=== PATIENT | male | born 1950 | race Caucasian/White ===

== ENCOUNTER → 2017-11-20 | Outpatient (CLI) | payer BC ==
--- NOTE | 2017-11-20 10:27 | Diagnostic Imaging Report ---
INDICATION: Pain in the right ribs. Time of exam: 10:27 AM 3 views of the right sided ribs were obtained. No displaced rib fracture is identified. No parenchymal contusion is identified. No effusion or pneumothorax is seen. IMPRESSION: No acute feature is identified. Dictated by: Dictated on workstation # [id number]
== END ==
LOC: RAD 09:56
PROVIDERS: ATTEND Nurse Practitioner Family
DX: R07.81 Pleurodynia (principal)
CPT/HCPCS: 71100

== ENCOUNTER 2018-01-19 08:01 | Day surgery (SDC) | payer BC ==
[~2018-01-19] VITALS: Ht 177.8 cm; Wt 115.7 kg
[~2018-01-19 08:01] MED LIST: ENAL20TA PO; LEVO150T6 PO; MULT-35 PO
--- OUTSIDE RECORDS SUMMARY | 2018-01-19 08:03 | XMS REPORT | Continuity of Care Document ---
Author Author [employer] Organization [facility] Address Unknown Phone Unavailable Care Team Providers Care Senior Benefits Analyst Name Role Phone [employer] Unavailable Unavailable Problems Medications Allergies, Adverse Reactions, Alerts Immunizations Results Vital Signs Encounters Location Location Details Encounter Type Encounter Number Reason For Visit Attending Provider ADM Date DC Date Status Source OUTPATIENT [id number] VISHAL GOLDEN 08/26/2016 08/26/2016 Active [facility] OUTPATIENT [id number] BRENDA COSTELLO 12/03/20172017 Active [facility] OUTPATIENT [id number] BRENDA COSTELLO 12/03/2017 Active [facility] O BRENDA COSTELLO Active [facility] Procedures Plan of Care Social History Assessment and Plan Family History Advance Directives Functional Status
--- OUTSIDE RECORDS SUMMARY | 2018-01-19 08:04 | XMS REPORT | Encounter Summary ---
Author Author [facility] Organization [facility] Address Unknown Phone Unavailable Care Team Providers Care Bioinformatics Technician Name Role Phone Brice Berry MD Unavailable Josh Ledesma MD Unavailable Iris Fisher RN Unavailable Unavailable Easton Martinez MD Unavailable Wiley Vargas MD PCP Maria Elena Haji Unavailable Unavailable Anita Rdz APRN Unavailable Candi Rosales PHARMD Unavailable Unavailable Isha Chahal Unavailable Unavailable Elyssa Brower Unavailable Unavailable Francisca Hu Unavailable Unavailable Reason for Visit * Reason Comments Results Encounter Details Date Type Department Care Team Description 12/07/2017 Telephone Center Shawn Arthur, Results Transplantation-Hepatolog CURTAIN STITCHER-CYTOTECHNOLOGIST/HISTOTECHNOLOGIST y Clinic [address] [facility] [address] [place] [address] [facility] [phone] [place] [address] Social History Tobacco Use Types Packs/Day Years Used Date Never Smoker Smokeless Tobacco: Never Used Alcohol Use Drinks/Week oz/Week Comments Yes 0 Standard 0.0 1 drink per week drinks or equivalent Sex Assigned at Date Recorded Not on file as of this encounter Functional Status Functional Status Response Date of Assessment Does the patient have a hearing impairment: No 12/03/2017 Does the patient have a visual impairment: No 12/03/2017 Does the patient have impaired ambulation: No 12/03/2017 Does the patient have an activity of daily living No 12/03/2017 (ADL) impairment: Does the patient have an instrumental activity of No 12/03/2017 daily living (IADL) impairment: Cognitive Status Response Date of Assessment Does the patient have a cognitive impairment: No 12/03/2017 as of this encounter Miscellaneous Notes * Telephone Encounter - Chantal Garza RN - 12/07/2017 1:09 PM CDT Patient notified that lab results are stable at this time. * Telephone Encounter - Chantal Garza RN - 12/07/2017 1:09 PM CDT ----- Message from CLARIBEL Mendez sent at 12/05/2017 8:09 AM CDT -- --- No evidence of iron overload Liver enzymes are stable in this encounter Plan of Treatment Not on fileas of this encounter Visit Diagnoses Not on filein this encounter
--- OUTSIDE RECORDS SUMMARY | 2018-01-19 08:04 | XMS REPORT | Clinical Summary ---
Author Author [facility] Organization [facility] Address Unknown Phone Unavailable Care Team Providers Care Barrel Drum Cutter Name Role Phone Brice Berry MD Unavailable Josh Ledesma MD Unavailable Iris Fisher RN Unavailable Unavailable Easton Martinez MD Unavailable Wiley Vargas MD PCP Maria Elena Haji Unavailable Unavailable Anita Rdz APRN Unavailable Candi Rosales PHARMD Unavailable Unavailable Isha Chahal Unavailable Unavailable Elyssa Brower Unavailable Unavailable Francisca Hu Unavailable Unavailable Source Comments Some departments are not documenting in the electronic medical record. If you do not see the information that you expected, contact Release of Information in the Health Information Management department at [phone] for further assistance in locating additional records.[facility] Allergies No Known Allergies Current Medications Prescription Sig. Disp. Refills Start End Date Status Date enalapril (VASOTEC) 20 mg Take 20 mg by mouth Active tablet daily. levothyroxine (SYNTHROID) Take 150 mcg by mouth Active 150 mcg tablet daily. ibuprofen (ADVIL) 200 mg Take 200 mg by mouth Active tablet every 6 hours as needed for Pain. Take with food. Active Problems Problem Noted Date Essential hypertension 11/03/2015 Hepatitis C 11/03/2015 Hypothyroidism 11/03/2015 Encounters Date Type Specialty Care Team Description 12/14/2017 Documentation Hepatology Shawn Mcdaniels, CYBER INSTRUCTOR-FLAG MAKER 12/07/2017 Telephone Hepatology Shawn Mcdaniels, Results CYBER INSTRUCTOR-FLAG MAKER 12/03/2017 Hospital Lab Shawn Mcdaniels, Chronic viral hepatitis C Encounter CYBER INSTRUCTOR-FLAG MAKER (HCC) 12/03/2017 Office Visit Hepatology Shawn Mcdaniels, Chronic hepatitis C CYBER INSTRUCTOR-FLAG MAKER without hepatic coma (HCC) (Primary Dx); Essential hypertension; Other specified hypothyroidism from Last 3 Months Family History Medical History Relation Name Comments Basal Cell Carcinoma Father Relation Name Status Comments Father Social History Tobacco Use Types Packs/Day Years Used Date Never Smoker Smokeless Tobacco: Never Used Alcohol Use Drinks/Week oz/Week Comments Yes 0 Standard 0.0 1 drink per week drinks or equivalent Sex Assigned at Date Recorded Not on file Last Filed Vital Signs Vital Sign Reading Time Taken Blood Pressure 138/76 12/03/2017 10:56 AM CDT Pulse 58 12/03/2017 10:56 AM CDT Temperature 37 C (98.6 F) 12/03/2017 10:56 AM CDT Respiratory Rate 16 12/03/2017 10:56 AM CDT Oxygen Saturation 98% 12/03/2017 10:56 AM CDT Inhaled Oxygen - - Concentration Weight 117.6 kg (259 lb 3.2 oz) 12/03/2017 10:56 AM CDT Height 177.8 cm (5' 10") 12/03/2017 10:56 AM CDT Body Mass Index 37.19 12/03/2017 10:56 AM CDT Plan of Treatment Health Maintenance Due Date Last Done Comments PHYSICAL (COMPREHENSIVE) 1959 EXAM PERTUSSIS VACCINE 1963 TETANUS VACCINE 1969 COLORECTAL CANCER 2002 SCREENING SHINGLES VACCINE 2012 PREVNAR/PNEUMOVAX (#1) 2017 INFLUENZA VACCINE 06/21/2018 HIV SCREENING Completed 11/01/2015 Procedures Procedure Name Priority Date/Time Associated Diagnosis Comments ND LIVER ELASTOGRAPHY W/O Routine 12/03/2017 Chronic hepatitis C Results for this IMAG W/I&R 10:40 AM CDT without hepatic coma procedure are in the (HCC) results section. Essential hypertension Other specified hypothyroidism from Last 3 Months Results * IRON + BINDING CAPACITY + %SAT+ FERRITIN (12/03/2017 11:50 AM) Component Value Ref Range Iron 85 50 - 185 MCG/DL Iron Binding-TIBC 352 270 - 380 MCG/DL % Saturation 24 (L) 28 - 42 % Ferritin 160 30 - 300 NG/ML Specimen Performing Laboratory [facility] [address] [place] [address] * PROTIME INR (PT) (12/03/2017 11:50 AM) Component Value Ref Range INR 1.0 0.8 - 1.2 Specimen Performing Laboratory [facility] [address] [place] [address] * CBC AND DIFF (12/03/2017 11:50 AM) Component Value Ref Range White Blood Cells 8.7 4.5 - 11.0 K/UL RBC 4.75 4.4 - 5.5 M/UL Hemoglobin 14.6 13.5 - 16.5 GM/DL Hematocrit 43.5 40 - 50 % MCV 91.5 80 - 100 FL MCH 30.7 26 - 34 PG MCHC 33.6 32.0 - 36.0 G/DL RDW 13.3 11 - 15 % Platelet Count 254 150 - 400 K/UL MPV 8.9 7 - 11 FL Neutrophils 61 41 - 77 % Lymphocytes 27 24 - 44 % Monocytes 7 4 - 12 % Eosinophils 4 0 - 5 % Basophils 1 0 - 2 % Absolute Neutrophil Count 5.30 1.8 - 7.0 K/UL Absolute Lymph Count 2.30 1.0 - 4.8 K/UL Absolute Monocyte Count 0.60 0 - 0.80 K/UL Absolute Eosinophil Count 0.40 0 - 0.45 K/UL Absolute Basophil Count 0.10 0 - 0.20 K/UL Specimen Performing Laboratory [facility] [address] [place] [address] * COMPREHENSIVE METABOLIC PANEL (12/03/2017 11:50 AM) Component Value Ref Range Sodium 137 137 - 147 MMOL/L Potassium 4.0 3.5 - 5.1 MMOL/L Chloride 105 98 - 110 MMOL/L Glucose 124 (H) 70 - 100 MG/DL Blood Urea Nitrogen 16 7 - 25 MG/DL Creatinine 0.85 0.4 - 1.24 MG/DL Calcium 9.1 8.5 - 10.6 MG/DL Total Protein 6.9 6.0 - 8.0 G/DL Total Bilirubin 0.4 0.3 - 1.2 MG/DL Albumin 4.6 3.5 - 5.0 G/DL Alk Phosphatase 50 25 - 110 U/L AST (SGOT) 17 7 - 40 U/L CO2 25 21 - 30 MMOL/L ALT (SGPT) 19 7 - 56 U/L Anion Gap 7 3 - 12 eGFR Non >60 >60 mL/min Comment: The eGFR is not validated for use in drug dosing adjustments.Continue to use estimated creatinine clearance per dosing reference text.Please contact the Clinical Pharmacist for questions. eGFR >60 >60 mL/min Comment: The eGFR is not validated for use in drug dosing adjustments.Continue to use estimated creatinine clearance per dosing reference text.Please contact the Clinical Pharmacist for questions. Specimen Performing Laboratory [facility] [address] [place] [address] * FIBROSCAN (12/03/2017 10:40 AM) Specimen Performing Laboratory IN CLINIC Shawn Patel APRN-YANI 12/03/20172:37 PM Fibroscan Procedure Note Date:12/03/2017 Burner Technician:Matty Mcdaniels APRN Attending:Easton Martinez MD Observations E (Elastacity) Median:6.6kPa IQR / med.:12% CAP Median:400 dB/m Interpretation Disease:HCV Fibrosis score correlation/Estimation: HCV <7.0 F0-F1:No to Minimal Fibrosis Steatosis score correlation/estimation: >290S3: >67% Steatosis Recommendations -Follow-up in clinic with liver provider -Lifestyle modification with exercise, diet, glycemic control are the cornerstones of fatty liver treatment. Fibroscan evaluations are estimates only and due to measurement variability/characteristics of elastography results should be interpreted with caution and clinical correlation is required. I certify that I performed the interpretation of this study, including review of measurements and supervisor vendor quality measures. Matty Mcdaniels APRN from Last 3 Months
--- OUTSIDE RECORDS SUMMARY | 2018-01-19 08:04 | XMS REPORT | Encounter Summary ---
Author Author [facility] Organization [facility] Address Unknown Phone Unavailable Care Team Providers Care Radiotelephone Technical Operator Name Role Phone Brice Berry MD Unavailable Josh Ledesma MD Unavailable Iris Fisher RN Unavailable Unavailable Easton Martinez MD Unavailable Wiley Vargas MD PCP Maria Elena Haji Unavailable Unavailable Anita Rdz APRN Unavailable Candi Rosales PHARMD Unavailable Unavailable Isha Chahal Unavailable Unavailable Elyssa Brower Unavailable Unavailable Francisca Hu Unavailable Unavailable Encounter Details Date Type Department Care Team Description 12/03/2017 [facility] Shawn Mcdaniels, Chronic viral hepatitis C Encounter [address] [facility]. FURNITURE DUSTER-TEAM PHYSICIAN (HCC) [place] [address] [address] [place] [address] [phone] Social History Tobacco Use Types Packs/Day Years [...] impairment: No 12/03/2017 as of this encounter Medications at Time of Discharge Medication Sig. Disp. Refills Start Date End Date enalapril (VASOTEC) 20 mg Take 20 mg by mouth tablet daily. ibuprofen (ADVIL) 200 mg Take 200 mg by mouth tablet every 6 hours as needed for Pain. Take with food. levothyroxine (SYNTHROID) Take 150 mcg by mouth 150 mcg tablet daily. as of this encounter Plan of Treatment Not on fileas of this encounter Results * IRON + BINDING CAPACITY + %SAT+ FERRITIN (12/03/2017 11:50 AM) Component Value Ref Range Iron 85 50 - 185 MCG/DL Iron Binding-TIBC 352 270 - 380 MCG/DL % Saturation 24 (L) 28 - 42 % Ferritin 160 30 - 300 NG/ML Specimen Performing Laboratory [facility] [address] [place] [address] * PROTIME INR (PT) (12/03/2017 11:50 AM) Component Value Ref Range INR 1.0 0.8 - 1.2 Specimen Performing Laboratory [facility] [address] [place] [address] * COMPREHENSIVE METABOLIC PANEL (12/03/2017 11:50 AM) [...] Pharmacist for questions. Specimen Performing Laboratory [facility] [address] [place] [address] * CBC AND DIFF (12/03/2017 11:50 AM) [...] Specimen Performing Laboratory [facility] [address] [place] [address] in this encounter Visit Diagnoses Diagnosis Chronic hepatitis C without hepatic coma (HCC) Chronic hepatitis C without mention of hepatic coma Essential hypertension Unspecified essential hypertension Other specified hypothyroidism Admitting Diagnoses Diagnosis Chronic viral hepatitis C (HCC) Chronic viral hepatitis C Essential (primary) hypertension Other specified hypothyroidism
--- OUTSIDE RECORDS SUMMARY | 2018-01-19 08:04 | XMS REPORT | Encounter Summary ---
Author Author [facility] Organization [facility] Address Unknown Phone Unavailable Care Team Providers Care Dialysis Social Worker Name Role Phone Brice Berry MD Unavailable Josh Ledesma MD Unavailable Iris Fisher RN Unavailable Unavailable Easton Martinez MD Unavailable Wiley Vargas MD PCP Maria Elena Haji Unavailable Unavailable Anita Rdz APRN Unavailable Candi Rosales PHARMD Unavailable Unavailable Isha Chahal Unavailable Unavailable Elyssa Brower Unavailable Unavailable Francisca Hu Unavailable Unavailable Encounter Details Date Type Department Care Team Description 12/14/2017 Documentation Center Shawn Arthur, Transplantation-Hepatolog MACHINE FANCY STITCHER-RN FORENSIC y Clinic [address] [facility] [address] [place] [address] [facility] [phone] [place] [address] Social History Tobacco Use Types [...] impairment: No 12/03/2017 as of this encounter Progress Notes * Sudha Rothman MA - 12/14/2017 10:59 AM CDT Fax Colonoscopy orders to Dr. Vargas office, to be scheduled locally. in this encounter Plan of Treatment Not on fileas of this encounter Visit Diagnoses Not on filein this encounter
--- OUTSIDE RECORDS SUMMARY | 2018-01-19 08:04 | XMS REPORT | Encounter Summary ---
Author Author [facility] Address Unknown Phone Unavailable Care Team Providers Care Business Trainer Name Role Phone Brice Berry MD Unavailable Josh Ledesma MD Unavailable Iris Fisher RN Unavailable Unavailable Vishal Golden MD Unavailable Wiley Vargas MD PCP Maria Elena Haji Unavailable Unavailable Anita Rdz PLANT TECHNICIAN Unavailable Candi Rosales PHARMD Unavailable Unavailable Isha Chahal Unavailable Unavailable Elyssa Brower Unavailable Unavailable Francisca Hu Unavailable Unavailable Reason for Referral * Consult, Test & Treat (Routine) Status Reason Specialty Diagnoses / Referred By Referred To Procedures Contact Contact New Request Specialty Diagnoses Paula Mcdaniels [facility] Chronic Shawn D, [address] Required hepatitis C PLANT TECHNICIAN-PHARMACY TECHNICIAN [place], [place] without hepatic [address] [address] coma (HCC) [address] Phone: Essential [place], [place] [phone] hypertension [phone] Other specified Phone: hypothyroidism [phone] Reason for Visit * Reason Comments Elevated Liver Enzymes Encounter Details Date Type Department Care Team Description 12/03/2017 Office Visit Center for Shawn Mcdaniels, Chronic hepatitis C Transplantation-Hepatolog PLANT TECHNICIAN-PHARMACY TECHNICIAN without hepatic coma [facility] [address] (HCC) (Primary Dx); [address] [place] [address] Essential hypertension; CENTER FOR [phone] Other [place] [address] Social History Tobacco Use Types Packs/Day Years Used Date Never Smoker Smokeless Tobacco: Never Used Alcohol Use Drinks/Week oz/Week Comments Yes 0 Standard 0.0 1 drink per week drinks or equivalent Sex Assigned at Date Recorded Not on file as of this encounter Last Filed Vital Signs Vital Sign Reading [...] Mass Index 37.19 12/03/2017 10:56 AM CDT in this encounter Functional Status Functional Status Response [...] impairment: No 12/03/2017 as of this encounter Instructions * Patient Instructions - Mary Peterson LPN - 12/03/2017 10:40 AM CDT 12/03/2017 11:07 AM Towel Sorter Please Schedule follow up with Dr. Golden in 1 year Please print order for colonoscopy to be done closer to home in [facility]. Labs today Fibroscan today Today you were seen in clinic by Matty Mcdaniels APRN. Your nurse was Mary. Your Clinical Coordinator is Low. You will also be followed by Dr. Vishal Golden MD. Things discussed at today's visit: We will check your labs today to determine your liver function status. You are due for a colonoscopy this year. You can schedule this closer to home. Your fibroscan today indicates some fat in your liver. We recommend that you work on diet and exercise in order to lose approximately 15 lbs. Please call the office at [phone] if you have any questions or concerns. Back Office Tasks: in this encounter Progress Notes * Shawn Mcdaniels APRN-PHARMACY TECHNICIAN - 12/03/2017 10:40 AM CDT Formatting of this note may be different from the original. Date of Service: 12/03/2017 Nuria Griggs is a 67 y.o. male Subjective: History of Present Illness Mr. Nuria Griggs is a very pleasant 67-year-old gentleman with a prior history of chronic hepatitis C genotype 1A with previous liver biopsy showing stage 3/6 fibrosis with previous FibroSure testing showing F1 and F2 fibrosis. He presents today in followup. He has subsequently completed eight weeks of Harvoni therapy and now has evidence of sustained virological response with a negative HCV RNA level from August 11, 2016. His last HCV PCR showed an undetectable viral load in January of 2017. The patient denies any history of decompensated liver disease symptoms. His liver enzymes have been unremarkable for several months. He reports he has done relatively well since he was last seen in clinic in August of 2016. He did have a fall with fracture of his right humerus. He reports he has recovered well and completed PT. He did have stainable iron on his last liver biopsy and a follow up ferritin level in August of 2016 was 177. He denies any right upper quadrant pain, nausea, hematemesis, melena, hematochezia, fatigue, fevers, jaundice, pruritis, chest pain, shortness of breath, or confusion. Review of Systems Review of systems as above and per History of Present Illness; otherwise negative for 10 of 14 systems reviewed. Objective: enalapril (VASOTEC) 20 mg tablet Take 20 mg by mouth daily. ibuprofen (ADVIL) 200 mg tablet Take 200 mg by mouth every 6 hours as needed for Pain. Take with food. levothyroxine (SYNTHROID) 150 mcg tablet Take 150 mcg by mouth daily. Vitals: 12/03/17 1056 BP: 138/76 Pulse: 58 Resp: 16 Temp: 37 C (98.6 F) TempSrc: Oral SpO2: 98% Weight: 117.6 kg (259 lb 3.2 oz) Height: 177.8 cm (70") Body mass index is 37.19 kg/m. Physical Exam Constitutional: Non-distressed. Well nourished appearing. Good hygiene. ENT: Oropharynx nl. Sclera white. Conjunctiva pink. Neck: Symmetric. Trachea midline. No masses. No JVD Chest: Expands fully and symmetrically with deep inspiration. No intercostal retractions or use of accessory muscles. Auscultation clear, without rales, rhonchi, or wheezes. Cardiac: RRR. No rubs or gallop. No murmurs Peripheral vascular: No peripheral edema. No varicosities. Extremities: Digits/nails without clubbing, cyanosis, inflammation, or infection. Negative for palmar erythema. Abdomen: No hepatomegaly. No splenomegaly. No masses or tenderness. Bowel sounds positive. Negative for scarring. Negative for medusa caput. Negative for ascites. Negative for herniation. Lymphatic: No cervical lymphadenopathy. Musculoskeletal: Muscle strength/tone nl. No atrophy or abnormal movements Skin: No rashes, lesions or ulcers. Negative for jaundice. Negative for cutaneous spiders. Psychiatric:Mood and affect are normal Neuro: Oriented X 3. Negative for asterixis. Negative for tremor. Results for NURIA GRIGGS ( ) as of 12/03/2017 13:19 Ref. Range 12/03/2017 11:50 Hemoglobin Latest Ref Range: 13.5 - 16.5 GM/DL 14.6 Hematocrit Latest Ref Range: 40 - 50 % 43.5 Platelet Count Latest Ref Range: 150 - 400 K/UL 254 White Blood Cells Latest Ref Range: 4.5 - 11.0 K/UL 8.7 Neutrophils Latest Ref Range: 41 - 77 % 61 Absolute Neutrophil Count Latest Ref Range: 1.8 - 7.0 K/UL 5.30 Lymphocytes Latest Ref Range: 24 - 44 % 27 Absolute Lymph Count Latest Ref Range: 1.0 - 4.8 K/UL 2.30 Monocytes Latest Ref Range: 4 - 12 % 7 Absolute Monocyte Count Latest Ref Range: 0 - 0.80 K/UL 0.60 Eosinophils Latest Ref Range: 0 - 5 % 4 Absolute Eosinophil Count Latest Ref Range: 0 - 0.45 K/UL 0.40 Absolute Basophil Count Latest Ref Range: 0 - 0.20 K/UL 0.10 Basophils Latest Ref Range: 0 - 2 % 1 RBC Latest Ref Range: 4.4 - 5.5 M/UL 4.75 MCV Latest Ref Range: 80 - 100 FL 91.5 MCH Latest Ref Range: 26 - 34 PG 30.7 MCHC Latest Ref Range: 32.0 - 36.0 G/DL 33.6 MPV Latest Ref Range: 7 - 11 FL 8.9 RDW Latest Ref Range: 11 - 15 % 13.3 INR Latest Ref Range: 0.8 - 1.2 1.0 Iron Latest Ref Range: 50 - 185 MCG/DL 85 % Saturation Latest Ref Range: 28 - 42 % 24 (L) Iron Binding-TIBC Latest Ref Range: 270 - 380 MCG/DL 352 Ferritin Latest Ref Range: 30 - 300 NG/ML 160 Sodium Latest Ref Range: 137 - 147 MMOL/L 137 Potassium Latest Ref Range: 3.5 - 5.1 MMOL/L 4.0 Chloride Latest Ref Range: 98 - 110 MMOL/L 105 CO2 Latest Ref Range: 21 - 30 MMOL/L 25 Anion Gap Latest Ref Range: 3 - 12 7 Blood Urea Nitrogen Latest Ref Range: 7 - 25 MG/DL 16 Creatinine Latest Ref Range: 0.4 - 1.24 MG/DL 0.85 eGFR Non Latest Ref Range: >60 mL/min >60 eGFR Latest Ref Range: >60 mL/min >60 Glucose Latest Ref Range: 70 - 100 MG/DL 124 (H) Albumin Latest Ref Range: 3.5 - 5.0 G/DL 4.6 Calcium Latest Ref Range: 8.5 - 10.6 MG/DL 9.1 Total Bilirubin Latest Ref Range: 0.3 - 1.2 MG/DL 0.4 Total Protein Latest Ref Range: 6.0 - 8.0 G/DL 6.9 AST (SGOT) Latest Ref Range: 7 - 40 U/L 17 ALT (SGPT) Latest Ref Range: 7 - 56 U/L 19 Alk Phosphatase Latest Ref Range: 25 - 110 U/L 50 PATHOLOGY REPORT [facility] [email or web address] Barbara Chavez MD, PhD, Director Anatomic Pathology Department of Pathology and Laboratory Medicine [address] [place] [id number] Surgical Pathology Office: [phone] SURGICAL PATHOLOGY REPORT NAME: NURIA GRIGGS SURG PATH #: [id number] MR #: [id number] SPECIMEN CLASS: SR BILLING #: [id number] ALT ID #: [facility] DATE OF PROCEDURE: 12/31/2015 AGE: 65 SEX: M DATE RECEIVED: 12/31/2015 : 1950 TIME RECEIVED: 14:17 PHYSICIAN: VISHAL GOLDEN DATE OF REPORT: 01/01/2016 COPY TO: DATE OF PRINTIN01/01/2016 ######################################################################## Final Diagnosis: A. Liver, "liver biopsy", biopsy: Chronic hepatitis, clinically hepatitis C, with mild activity (mHAI grade 3/18). Fibrous expansion of most portal areas with occasional bridging (mHAI stage 3/6). Increased hepatocellular iron (3/4). Comment: Check list for liver biopsy with Hepatitis C. Modified ZAID grading Score Interface hepatitis (piecemeal necrosis) 0/4 Confluent necrosis 0/6 Spotty necrosis 1/4 Portal inflammation 2/4 Total score 3/18 Modified ZAID staging 3/6 Percent Steatosis: <5 % COMMENT: Special stains (trichrome, PAS with and without diastase, Yudith's iron stain) support the above diagnosis. Attestation: By this signature, I attest that I have personally formulated the final interpretation expressed in this report and that the above diagnosis is based upon my examination of the slides and/or other material indicated in this report. +++Electronically Signed Out By+++ soo/12/31/2015 Interpreted by: Theodore Austin M.D. Surgical Pathology Fellow 01/01/2016 ######################################################################## Material Received: A: Liver biopsy History: 65-year-old male with a clinical history of hepatitis C. Gross Description: A. Received in formalin labeled "liver biopsy" is a 1.8 x 0.2 x 0.1 cm aggregate of cylindrical, pale bean, soft tissue fragments. The specimen is entirely submitted in cassette A1. (arl) arl/12/31/2015 Fibroscan Procedure Note Date: 12/03/2017 Payroll Manager: Matty Mcdaniels APRN Attending: Vishal Golden MD Observations E (Elastacity) Median: 6.6 kPa IQR / med.: 12% CAP Median: 400 dB/m Interpretation Disease: HCV Fibrosis score correlation/Estimation: HCV <7.0 F0-F1: No to Minimal Fibrosis Steatosis score correlation/estimation: >290 S3: >67% Steatosis Recommendations -Follow-up in clinic with liver provider -Lifestyle modification with exercise, diet, glycemic control are the cornerstones of fatty liver treatment. Fibroscan evaluations are estimates only and due to measurement variability/ characteristics of elastography results should be interpreted with caution and clinical correlation is required. I certify that I performed the interpretation of this study, including review of measurements and senior software quality engineer measures. Matty Mcdaniels APRN Assessment and Plan: Impression: Mr. Griggs is a pleasant 66-year-old gentleman with a history of prior hepatitis C, genotype 1A, now completed eight weeks of Harvoni with evidence of sustained virological response, now presenting in followup. Assessment and plan: 1. History of hepatitis C We had a detailed discussion and review with the patient. He has a history of prior hepatitis C genotype 1A. He had stage 3/6 fibrosis as noted below. He has completed eight weeks of Harvoni. He now has evidence of sustained virologic response with his last HCV RNA level negative on August 11, 2016. His ALT had been mildly elevated up to 50 in the past but have now stabalized. We have discussed the concept of eradication of hepatitis C. We discussed the durability of SVR based on current data. We did discuss repeating an HCV RNA level within the next year to ensure persistent viral negativity, although again extremely low risk of relapse at this point. If his HCV RNA level remains negative, no further need for ongoing hepatitis C monitoring at this point. 2. Fibrosis staging The patient had initial Fibrotest showing F1-F2 fibrosis and then had a liver biopsy showing stage 3/6 fibrosis. His fibro scan today did not showed significant fibrosis with F0-F1 fibrosis. We will anticipate future Fibroscan in a year for reassessment, which we have discussed and reviewed with the patient. 3. Hemosiderosis This was noted that the patient did have 3/4 increased hepatocellular iron on recent liver biopsy. The significance of this is unclear, his last ferritin level was 177 and we will repeat iron studies today. If unremarkable, he will likely require no further testing and if elevated, then may warrant HFE gene testing. 4. Vaccination status He has a history of prior exposure to hepatitis B as he has been surface antibody positive, core antibody positive and requires no further intervention. His hepatitis A IgG is also positive. We did discuss the implications of having prior hepatitis B exposure in the past. If he should require high-dose immunosuppression or chemotherapy, he may require viral prophylaxis and asked him to notify us if there are any changes in his status that may require attention to this issue. 5. Colon cancer screening He reports a colonoscopy approximately 7 years ago that was unremarkable. He can follow up with his local physicians for continued surveillance. 6. Follow up We will plan to see the patient back in one year time or sooner. We have asked the patient to call or contact us in the interim with any further changes or updates his clinical condition. Thank you very much for allowing me to participate in the care of this very kind and interesting patient. Please do not hesitate to call or contact me at [phone] if I may be of further assistance in his care. Matty Mcdaniels APRN in this encounter Procedure Notes * Shawn Mcdaniels APRN-PHARMACY TECHNICIAN - 12/03/2017 10:40 AM CDT Associated Order(s): FIBROSCAN Procedure(s): UT LIVER ELASTOGRAPHY W/O IMAG W/I&R Pre-Procedure Diagnose(s): Chronic hepatitis C without hepatic coma (HCC); Essential hypertension; Other specified hypothyroidism Fibroscan Procedure Note Date: 12/03/2017 Payroll Manager: Matty Mcdaniels APRN Attending: Vishal Golden MD Observations E (Elastacity) Median: 6.6 kPa IQR / med.: 12% CAP Median: 400 dB/m Interpretation Disease: HCV Fibrosis score correlation/Estimation: HCV <7.0 F0-F1: No to Minimal Fibrosis Steatosis score correlation/estimation: >290 S3: >67% Steatosis Recommendations -Follow-up in clinic with liver provider -Lifestyle modification with exercise, diet, glycemic control are the cornerstones of fatty liver treatment. Fibroscan evaluations are estimates only and due to measurement variability/ characteristics of elastography results should be interpreted with caution and clinical correlation is required. I certify that I performed the interpretation of this study, including review of measurements and senior software quality engineer measures. Matty Mcdaniels SHANON in this encounter Plan of Treatment Name Priority Associated Diagnoses Order Schedule AMB REFERRAL TO GI LAB FOR PROCEDURE Routine Chronic hepatitis C Ordered : 12/03/2017 without hepatic coma (HCC) Essential hypertension Other specified hypothyroidism as of this encounter Procedures Procedure Name Priority Date/Time Associated Diagnosis Comments UT LIVER ELASTOGRAPHY W/O Routine 12/03/2017 Chronic hepatitis C Results for this IMAG W/I&R 10:40 AM CDT without hepatic coma procedure are in the (HCC) results section. Essential hypertension Other specified hypothyroidism in this encounter Results * IRON + BINDING CAPACITY + %SAT+ FERRITIN (12/03/2017 11:50 AM) Component Value Ref Range Iron 85 50 - 185 MCG/DL Iron Binding-TIBC 352 270 - 380 MCG/DL % Saturation 24 (L) 28 - 42 % Ferritin 160 30 - 300 NG/ML Specimen Performing Laboratory Blood MAIN LAB [address] [place] [address] * PROTIME INR (PT) (12/03/2017 11:50 AM) Component Value Ref Range INR 1.0 0.8 - 1.2 Specimen Performing Laboratory Blood MAIN LAB [address] [place] [address] * COMPREHENSIVE METABOLIC PANEL (12/03/2017 11:50 AM) [...] Specimen Performing Laboratory Blood MAIN LAB [address] [place] [id number] * CBC AND DIFF (12/03/2017 11:50 AM) [...] Specimen Performing Laboratory Blood MAIN LAB [address] [place] [address] * FIBROSCAN (12/03/2017 10:40 AM) Specimen Performing Laboratory IN CLINIC Shawn Patel APRN-PHARMACY TECHNICIAN 12/03/20172:37 PM Fibroscan Procedure Note Date:12/03/2017 Payroll Manager:Matty Mcdaniels APRN Attending:Vishal Golden MD Observations E (Elastacity) Median:6.6kPa IQR / [...] this study, including review of measurements and senior software quality engineer measures. Matty Mcdaniels APRN in this encounter Visit Diagnoses Diagnosis Chronic hepatitis C without hepatic coma (HCC) - Primary Chronic hepatitis C without mention of hepatic coma Essential hypertension Unspecified essential hypertension Other specified hypothyroidism
--- OUTSIDE RECORDS SUMMARY | 2018-01-19 08:04 | XMS REPORT | Continuity of Care Document ---
Author Author [facility] Address Unknown Phone Unavailable Allergies Active Description Code Type Severity Reaction Onset Reported/Identified Relationship to Patient Clinical Status Yes No Known Drug Allergies [id number] Drug Allergy Unknown N/A 01/12/2018 Medications There is no data. Problems Date Dx Coded Attending Type Code Diagnosis Diagnosed By 09/28/2015 ARLETH TAFOYA MD, FACCP CCDS Ot 429.3 09/28/2015 ARLETH TAFOYA MD, FACCP CCDS Ot 786.09 09/28/2015 ARLETH TAFOYA MD, FACC FACP CCDS Ot 786.59 09/28/2015 ALONDRA PABLO WILLIAM R Ot 724.6 10/10/2015 ALONDRA PABLO WILLIAM R Ot B19.20 10/10/2015 ALONDRA PABLO WILLIAM R Ot R14.0 11/20/2017 ARLETH TAFOYA MD, FACC FACP CCDS Ot 429.3 CARDIOMEGALY 11/20/2017 ARLETH TAFOYA MD, FACC FACP CCDS Ot 786.09 RESPIRATORY ABNORM NEC 11/20/2017 MICHELET PABLO FACC, ARLETH FACP CCDS Ot 786.59 CHEST PAIN NEC 11/20/2017 ALONDRA PABLO WILLIAM R Ot 724.6 DISORDERS OF SACRUM 11/20/2017 ALONDRA PABLO WILLIAM R Ot B19.20 UNSPECIFIED VIRAL HEPATITIS C WITHOUT HE 11/20/2017 ALONDRA PABLO WILLIAM R Ot R14.0 ABDOMINAL DISTENSION (GASEOUS) 11/24/2017 ILIA MCDONNELL FACILITIES ADMINISTRATOR Ot R07.81 PLEURODYNIA 12/22/2017 ILIA MCDONNELL FACILITIES ADMINISTRATOR Ot R07.81 PLEURODYNIA 12/30/2017 MICHELET PABLO FACC ALI FACP CCDS Ot 429.3 CARDIOMEGALY 12/30/2017 MICHELET PABLO FACC, ARLETH FACP CCDS Ot 786.09 RESPIRATORY ABNORM NEC 12/30/2017 MICHELET PABLO FACC, ALI FACP CCDS Ot 786.59 CHEST PAIN NEC 12/30/2017 ALONDRA PABLO, WILLIAM Duque Ot 724.6 DISORDERS OF SACRUM 12/30/2017 ALONDRA PABLO, WILLIAM Duque Ot B19.20 UNSPECIFIED VIRAL HEPATITIS C WITHOUT HE 12/30/2017 ALONDRA PABLO, WILLIAM Duque Ot R14.0 ABDOMINAL DISTENSION (GASEOUS) 12/30/2017 ILIA MCDONNELL FACILITIES ADMINISTRATOR Ot R07.81 PLEURODYNIA 01/13/2018 FABIEN MCNAMARA DO Ot Z01.818 ENCOUNTER FOR OTHER PREPROCEDURAL EXAMIN 01/13/2018 FABIEN MCNAMARA DO Ot Z12.11 ENCOUNTER FOR SCREENING FOR MALIGNANT NE Procedures There is no data. Results There is no data. Encounters ACCT No. Visit Date/Time Discharge Status Pt. Type Provider Facility Loc./Unit Complaint [id number] 06/06/2014 10:12:17 06/06/2014 23:59:59 CLS Outpatient Yuri Ricci [id number] 01/12/2018 05:39:00 01/12/2018 10:44:00 DIS Outpatient FABIEN MCNAMARA DO [facility] PREOP COLONOSCOPY [id number] 11/20/2017 09:56:00 11/20/2017 23:59:59 CLS Outpatient ILIA MCDONNELL FACILITIES ADMINISTRATOR [facility] RAD R07.81 [id number] 09/28/2015 12:20:00 09/28/2015 23:59:59 CLS Outpatient WILLIAM CANTU MD [facility] RAD INCREASING ABD GIRTH,HX HEP C [id number] 06/08/2014 09:56:00 06/08/2014 23:59:59 CLS Outpatient WILLIAM CANTU MD [facility] RAD PAIN IN SI JOINT AND PELVIS [id number] 06/20/2013 11:25:00 06/20/2013 23:59:59 CLS Outpatient MICHELET PABLO FACC, ARLETH FACP CCDS [facility] CARD CHEST DISCOMFORT,DYSPNEA [id number] 01/19/2018 09:00:00 PEN Preadmit FABIEN MCNAMARA DO [facility] ENDO SCREENING
[2018-01-19] MEDS ORDERED: LACTATED RINGERS 1,000 ML IV ONE (08:11)
[2018-01-19] MEDS ORDERED: LACTATED RINGERS 1,000 ML IV STA (08:11)
--- NOTE | 2018-01-19 08:28 | Progress Note-Pre Operative ---
Pre-Operative Progress Note H&P Reviewed The H&P was reviewed, patient examined and no changes noted. Date Seen by Provider: January 19, 2018 Time Seen by Provider: 08: Date H&P Reviewed: January 19, 2018 Time H&P Reviewed: 08: Pre-Operative Diagnosis: screening colonoscopy, family history colon cancer FABIEN MCNAMARA DO January 19, 2018 08:28
[2018-01-19 08:29] VITALS: BP 129/87
[2018-01-19] MEDS ORDERED: PROPOFOL INJECTION 50 ML IV ONE (08:39)
[2018-01-19] MEDS ORDERED: MIDAZOLAM 2 MG/2 ML (VERSED) VIAL ONE (08:39)
--- NOTE | 2018-01-19 09:17 | Discharge Inst-Simple/Standard ---
Discharge Inst-Standard Patient Instructions/Follow Up Plan of Care/Instructions/FU: 2 weeks Kimmie Activity as Tolerated: Yes Discharge Diet: Regular Diet FABIEN MCNAMARA DO January 19, 2018 09:17
--- NOTE | 2018-01-19 09:20 | Progress Note-Post Operative ---
Post-Operative Progess Note Surgeon (s)/Fish House Worker (s) Surgeon FABIEN MCNAMARA DO Fish House Worker: na Pre-Operative Diagnosis screening colonoscopy, family history colon cancer Post-Operative Diagnosis descending and sigmoid colon polyp Procedure & Operative Findings Date of Procedure 01/19/18 Procedure Performed/Findings colonoscopy c hot bx polypectomy x 2 Anesthesia Type per rd project manager Estimated Blood Loss Estimated blood loss (mL): none Specimens/Packing Specimens Removed colon polyps FABIEN MCNAMARA DO January 19, 2018 09:20
[2018-01-19 09:30] VITALS: BP 149/87
[2018-01-19 10:00] VITALS: BP 136/95
--- NOTE | 2018-01-19 10:13 | Anesthesia-General Post-Op ---
MAC Patient Condition Mental Status/LOC: Same as Preop Cardiovascular: Satisfactory Nausea/Vomiting: Absent Respiratory: Satisfactory Pain: Controlled Complications: Absent Post Op Complications Complications None Follow Up Care/Instructions Patient Instructions None needed. Anesthesiology Discharge Order Discharge Order Patient is doing well, no complaints, stable vital signs, no apparent adverse anesthesia problems. No complications reported per nursing. DONNIE BOGGS CRNA January 19, 2018 10:13
[2018-01-19 10:15] VITALS: BP 136/95
--- NOTE | 2018-01-19 17:43 | OPERATIVE REPORT ---
DATE OF SERVICE: 01/19/2018 PREOPERATIVE DIAGNOSIS: Screening colonoscopy, family history of colon cancer. POSTOPERATIVE DIAGNOSES: Descending colon polyp and sigmoid colon polyp. PROCEDURE: Colonoscopy with hot biopsy polypectomy x2. SURGEON: Fabien Burks DO ANESTHESIA: Per WATER SOFTENER SERVICER. ESTIMATED BLOOD LOSS: None. COMPLICATIONS: None. INDICATIONS: The patient is a 67-year-old male with family history of colon cancer. He is due for screening colonoscopy. He understands risks and benefits of procedure, wished to proceed with procedure. Consent was signed in the chart. DESCRIPTION OF PROCEDURE: The patient was taken to the endoscopy suite, placed in left lateral recumbent position. Timeout was performed. Digital rectal exam was performed. There were no palpable pulse, mass or ulcerations. The scope was inserted into the rectum and advanced all the way to the cecum with minimal difficulty. Prep was adequate. There were no polyps, mass, ulcerations present within the cecum, ascending and transverse colon. Within the descending colon, a small polyp was present, which hot biopsy polypectomy was performed. Scope was continued slowly retracted back in a sigmoid a second polyp was present, which hot biopsy polypectomy was performed. Scope was then slowly retracted back into the rectum where it was also retroflexed noting no other pathology. Scope was returned to its normal position, slowly withdrawn until completely removed. The patient tolerated procedure well without any complications, taken to recovery room in stable condition. RECOMMENDATIONS: The patient will need repeat colonoscopy in 5 years. If he has any problems prior to that, he should be reevaluated at that time. He will follow up in 2 weeks to discuss pathology and see how he is doing at that time. Job ID: [id number] DocumentID: [id number] Dictated Date: 01/19/2018 09:21:56 Interface Engineer Date: 01/19/2018 17:41:51 Dictated By: FABIEN BURKS DO MTDD
== END 2018-01-19 10:15 | disposition home or self-care (01) ==
LOC: ENDO 08:01
PROVIDERS: ATTEND Surgery
DX: Z12.11 Encounter for screening for malignant neoplasm of colon (principal); K63.5 Polyp of colon; Z80.0 Family history of malignant neoplasm of digestive organs; I10 Essential (primary) hypertension; E03.9 Hypothyroidism, unspecified; B19.20 Unspecified viral hepatitis C without hepatic coma; Z79.899 Other long term (current) drug therapy
CPT/HCPCS: 88305

== ENCOUNTER → 2018-07-09 | Outpatient (CLI) | payer BC, MEDICARE ==
[~2018-07-09] VITALS: Ht 177.8 cm; Wt 118.8 kg
[~2018-07-09] MED LIST changes: +CATHETER FLUSH 10 ML SYR IV PRN
[2018-07-09 09:11] VITALS: BP 175/89
--- NOTE | 2018-07-10 00:36 | STRESS TEST ---
DATE OF SERVICE: 07/09/2018 RESTING AND POST EXERCISE TECHNETIUM-99M TETROFOSMIN SPECT CT IMAGING ORDERING PHYSICIAN: Marily DARDEN. PRIMARY PHYSICIAN: Dr. Vargas. CLINICAL DIAGNOSIS: Shortness of breath. Baseline images were carried out after injection of 10.63 mCi of technetium-99m Tetrofosmin. This was followed by exercise on a treadmill. Stepan protocol was employed. Heart rate response to exercise was normal. Blood pressure response to exercise was somewhat hypertensive. There did not appear to be significant ST segment changes. The test was stopped on account of fatigue. He exercised for a total of 7 minutes in the Stepan protocol and attained 98% of maximum predicted heart rate. A 29.5 mCi of technetium-99m Tetrofosmin were injected after the patient had attained 85% of maximum predicted heart rate and the exercise was continued for another minute. The exercise was stopped on account of fatigue. Review of images at rest and following stress does not indicate any significant perfusion defects consistent with significant myocardial ischemia or infarction. Gated images show normal global left ventricular systolic function, normal regional wall motion. Left ventricular ejection fraction is calculated to be 64%. Left ventricular end diastolic volume is 102 mL. TID is absent (1.05). CONCLUSIONS: 1. No evidence of significant myocardial ischemia or infarction on this study. 2. Normal regional wall motion. 3. Normal global left ventricular systolic function with a calculated ejection fraction 64%. Job ID: [id number] DocumentID: [id number] Dictated Date: 07/09/2018 20:46:55 [employer] Date: 07/10/2018 00:35:26 Dictated By: ARLETH TAFOYA MD, MA, FACP, FACC,
== END ==
LOC: CARD 07:43
PROVIDERS: ATTEND Nurse Practitioner Family
DX: R06.09 Other forms of dyspnea (principal); I10 Essential (primary) hypertension; I51.7 Cardiomegaly
CPT/HCPCS: 78452; 93017

== ENCOUNTER → 2018-07-26 | Outpatient (CLI) | payer BC ==
[~2018-07-26] MED LIST changes: -CATHETER FLUSH 10 ML SYR IV PRN
== END ==
LOC: CARD 12:49
PROVIDERS: ATTEND Nurse Practitioner Family
DX: R06.09 Other forms of dyspnea (principal); I11.9 Hypertensive heart disease without heart failure; I07.1 Rheumatic tricuspid insufficiency
CPT/HCPCS: 93306

== ENCOUNTER → 2019-03-01 | Outpatient (CLI) | payer BC ==
[2019-03-01 17:47] LABS: BASOPHILS % (AUTO) 0 % (0-10); EOSINOPHILS # (AUTO) 0.4 10^3/uL (0.0-0.3); EOSINOPHILS % (AUTO) 4 % (0-10); HEMATOCRIT 40 % (40-54); LYMPHOCYTES # (AUTO) 2.3 X 10^3 (1.0-4.0); LYMPHOCYTES % (AUTO) 28 % (12-44); MEAN CORPUSCULAR HEMOGLOBIN 31 PG (25-34); MEAN CORPUSCULAR HGB CONC 35 G/DL (32-36); MEAN CORPUSCULAR VOLUME 88 FL (80-99); MEAN PLATELET VOLUME 10.8 FL (7.4-10.4); MONOCYTES # (AUTO) 0.7 X 10^3 (0.0-1.0); MONOCYTES % (AUTO) 8 % (0-12); NEUTROPHILS # (AUTO) 4.8 X 10^3 (1.8-7.8); NEUTROPHILS % (AUTO) 59 % (42-75); PLATELET COUNT 259 10^3/uL (130-400); RED CELL DISTRIBUTION WIDTH 12.9 % (10.0-14.5); WHITE BLOOD COUNT 8.1 10^3/uL (4.3-11.0)
[2019-03-01 17:56] LABS: PROTHROMBIN TIME PATIENT 13.1 SEC (12.2-14.7)
[2019-03-01 18:21] LABS: ALANINE AMINOTRANSFERASE 25 U/L (0-55); ALBUMIN 4.5 GM/DL (3.2-4.5); ALKALINE PHOSPHATASE 50 U/L (40-136); BILIRUBIN,TOTAL 0.3 MG/DL (0.1-1.0); BUN/CREATININE RATIO 16; CARBON DIOXIDE 25 MMOL/L (21-32); CHLORIDE 107 MMOL/L (98-107); GFR ESTIMATED > 60; GLUCOSE 123 MG/DL (70-105); POTASSIUM 4.3 MMOL/L (3.6-5.0); SODIUM 142 MMOL/L (135-145); TOTAL PROTEIN 6.8 GM/DL (6.4-8.2)
== END ==
LOC: LAB 17:23
PROVIDERS: ATTEND Family Medicine
DX: Z86.19 Personal history of other infectious and parasitic diseases (principal)
CPT/HCPCS: 36415; 80053; 85025; 85610

== ENCOUNTER 2020-04-02 12:39 | Outpatient (CLI) | payer BC | END 2020-04-02 12:58 | disposition home or self-care (01) | LOC: SLEEP 12:39 | PROVIDERS: ATTEND Family Medicine | DX: G47.33 Obstructive sleep apnea (adult) (pediatric) (principal); I10 Essential (primary) hypertension; E03.9 Hypothyroidism, unspecified; E11.9 Type 2 diabetes mellitus without complications; E03.4 Atrophy of thyroid (acquired); G47.10 Hypersomnia, unspecified; E66.09 Other obesity due to excess calories ==

== ENCOUNTER → 2022-04-09 | Outpatient (CLI) | payer BC, MEDICARE ==
[~2022-04-09] MED LIST changes: -ENAL20TA PO; +ENAL20TA16 PO
--- NOTE | 2022-04-09 16:51 | Diagnostic Imaging Report ---
INDICATION: Bilateral foot pain. TECHNIQUE: A noninvasive study was performed with ankle-brachial indices. FINDINGS: On the right side, the ankle brachial index was 1.29 for the posterior tibial territory and 0.89 for the dorsalis pedis. At the digit level, the ankle brachial index is 1.20. On the left side, the ankle brachial index was 1.36 for the posterior tibial distribution, 1.36 for the dorsalis pedis, and 1.36 for the digital level. Some degradation of the waveform distally on the right side was noted. IMPRESSION: The ankle brachial indices are normal except for a mild decrease in the dorsalis pedis territory on the right side. Dictated by: Dictated on workstation # [id number]
== END ==
LOC: RAD 12:18
PROVIDERS: ATTEND Nurse Practitioner Family
DX: M79.672 Pain in left foot (principal); M79.671 Pain in right foot
CPT/HCPCS: 93922